=== PATIENT | male | born 1965 | race Two or more races ===

== ENCOUNTER 2021-05-23 17:23 | Emergency (ER) | payer OTHER, MEDICAID ==
[~2021-05-23] VITALS: Ht 180.3 cm; Wt 93.0 kg
[2021-05-23] MEDS ORDERED: LIDOCAINE 5% TOPICAL PATCH TOP ONE (19:15)
[2021-05-23] MEDS ORDERED: SODIUM CHLORIDE 0.9% 1,000 ML IVB ONE (19:15)
[2021-05-23] MEDS ORDERED: MORPHINE SULFATE INJECTION 2 MG/ML SYRG IV ONE (19:15)
[2021-05-23] MEDS ORDERED: LIDO5DIS21 TOP (19:36)
[2021-05-23] MEDS ORDERED: DEXTROSE (50%) 50ML SYRG IV ONE (20:15)
[2021-05-23] MEDS ORDERED: SODIUM CHLORIDE 0.9% 500 ML IVB ONE (20:15)
[2021-05-23] MEDS ORDERED: IOHEXOL 300 MG/ML 100ML BOTTLE IJ ONE (20:23)
[2021-05-23 20:59] LABS: Basophils # (auto) 0.1 10 ^3/uL (0-0.2); Eosinophils # (auto) 0.5 10 ^3/uL (0-0.8); Hematocrit 19.4 % (41.0-53.0); Mean Corpuscular Hemoglobin 32.3 pg (28.0-32.0); Monocytes # (auto) 0.6 10 ^3/uL (0-1.3); Red Blood Cells 2.13 10^6/uL (4.5-5.90)
[2021-05-23 21:01] LABS: Basophils % (auto) 0.5 % (0.0-2.0); Eosinophils % (auto) 5.2 % (0.0-7.0); Lymphocytes # (auto) 0.7 10 ^3/uL (0.4-5.4); Lymphocytes % (auto) 6.7 % (10.0-50.0); Mean Corpuscular Hgb Conc. 35.5 g/dL (32.0-36.0); Monocytes % (auto) 5.8 % (0.0-12.0); Neutrophils # (auto) 8.5 10 ^3/uL (1.6-8.6); Neutrophils % (auto) 81.8 % (37.0-80.0); Red Cell Distribution Width 14.3 % (11.8-14.3); White Blood Cell 10.4 10^3/uL (4.4-10.8)
[2021-05-23 21:07] LABS: Hemoglobin 6.9 g/dL (13.5-17.5)
[2021-05-23 21:14] VITALS: BP 119/48
[2021-05-23 21:19] LABS: INR 1.14 (0.9-1.15)
[2021-05-23 21:33] LABS: Albumin 2.7 g/dL (3.4-5.0); BUN/Creatinine Ratio 7.9; Calcium 7.5 mg/dL (8.5-10.1); Potassium 5.2 mmol/L (3.5-5.1)
[2021-05-23 21:36] LABS: Bilirubin, Total 0.2 mg/dL (0.2-1.0); Total Protein 5.4 g/dL (6.4-8.2)
[2021-05-23] MEDS ORDERED: ACCU-CHEK COMFORT CURVE STRIP VI ONE (22:00)
[2021-05-23] MEDS ORDERED: InsuLIN REG 1unit/0.01ml Soln (100units/ml) SC ONE (22:00)
== END 2021-05-23 21:48 | disposition short-term general hospital (02) ==
LOC: ER 17:23 → EDBD 17:23 → ER 21:48
DX: S22.42XA Multiple fractures of ribs, left side, initial encounter for closed fracture (principal); K66.1 Hemoperitoneum; Z20.822 Contact with and (suspected) exposure to COVID-19; W18.39XA Other fall on same level, initial encounter; Y93.89 Activity, other specified; Y92.89 Other specified places as the place of occurrence of the external cause; Y99.8 Other external cause status
CPT/HCPCS: 36415; 70450; 72125; 73590; 74176; 74177; 80053; 82962; 85025; 85610; 86850; 86900; 86901; 96361; 96374; 99285; C9803; J2270; J7030; J7040; Q9967; U0003